=== PATIENT | female | born 1990 | race Caucasian/White ===

== ENCOUNTER 2018-01-22 02:02 | Inpatient (IN) | payer OTHER ==
[2018-01-22] MEDS: LACTATED RINGER'S 1000 ML IV (02:54)
[2018-01-22] MEDS: LR 1,000 ML IV ×2 (02:54→03:41)
[2018-01-22] MEDS: BUTORPHANOL 2 MG/ML INJ (J0595) IV (02:57)
[2018-01-22 03:03] LABS: HEMATOCRIT 38.3 % (36.0-47.0); HEMOGLOBIN 13.2 g/dl (12.0-15.5); MEAN CORPUSCULAR HEMOGLOBIN 29.9 pg (27.0-33.0); MEAN CORPUSCULAR HGB CONC 34.5 g/dl (32.0-36.5); MEAN CORPUSCULAR VOLUME 86.7 fl (80.0-96.0); PLATELET COUNT, AUTOMATED 173 10^3/uL (150-450); RED BLOOD COUNT 4.42 10^6/uL (4.00-5.40); RED CELL DISTRIBUTION WIDTH 13.2 % (11.5-14.5); WHITE BLOOD COUNT 18.8 10^3/uL (4.0-10.0)
[2018-01-22] MEDS ORDERED: fentaNYL 100 MCG/2 ML INJECTION (J3010) As Ordered (03:49)
[2018-01-22] MEDS ORDERED: FENTANYL 2MCG/ML ROPIVACAINE 0.2% IN 0.9% NACL 200ML IVBAG As Ordered (03:51)
[2018-01-22] MEDS ORDERED: NALOXONE INJ 0.4 MG/1 ML VIAL (J2310) IV (05:15)
[2018-01-22] MEDS ORDERED: ePHEDrine SULFATE 25 MG/5 ML(5MG/ML) SYRINGE IV (05:15)
[2018-01-22] MEDS ORDERED: FENTANYL/ROPIVACAINE/NACL BAG 200 ML EPIDURAL (05:15)
[2018-01-22] MEDS ORDERED: EPIDURAL COMMENT XX (05:15)
[2018-01-22] MEDS ORDERED: EPIDURAL/PCA KEYS XX (05:15)
[2018-01-22] MEDS ORDERED: diphenhydrAMINE INJ 50MG/ML VIAL (J1200) IV (05:15)
[2018-01-22] MEDS ORDERED: LACTATED RINGER'S 1000 ML IV (05:15)
[2018-01-22] MEDS ORDERED: ONDANSETRON 4MG/2ML VIAL (J2405) IV (05:15)
[2018-01-22] MEDS ORDERED: REFRIGERATOR IV KEYS XX (05:15)
[2018-01-22] MEDS ORDERED: OXYTOCIN 30 UNITS IN 0.9% NaCl 500ML IV BAG (J2590) As Ordered (06:11)
[2018-01-22] MEDS: OXYTOCIN DRIP 30 UNITS in APPROPRIATE DILUENT 1 EA IV (06:49)
[2018-01-22] MEDS ORDERED: DOCUSATE SODIUM 100 MG CAP PO (07:00)
[2018-01-22] MEDS ORDERED: MEASLES,MUMPS,RUBELLA VACCINE INJ (MMR-II) (90707) SC (07:00)
[2018-01-22] MEDS ORDERED: ACETAMINOPHEN 500 MG TAB PO (07:00)
[2018-01-22] MEDS ORDERED: DIBUCAINE 1% OINTMENT 30GM TOP (07:00)
[2018-01-22] MEDS: PRENATAL VITAMINS CHEWABLE TABLET PO (10:28)
[2018-01-22] MEDS: IBUPROFEN 800 MG TAB PO (20:34)
[2018-01-23 10:51] LABS: FETAL SCREEN PROF. 1 1
[2018-01-23] MEDS: PRENATAL VITAMINS CHEWABLE TABLET PO (10:55)
[2018-01-23] MEDS: RHOGAM 300 MCG (1500 IU) INJ (J2790) IM (11:03)
[2018-01-23] MEDS: INFLUENZA QUADRIVALENT PF VACCINE 0.5ML SYRINGE (90686) IM (12:30)
== END 2018-01-23 12:50 | disposition home or self-care (01) | DRG 775 ==
LOC: M LDO 02:02 → M LDI 02:27 → M OBS 09:22
PROVIDERS: Obstetrics & Gynecology; Pediatrics
PROC: 10E0XZZ Delivery of Products of Conception, External Approach (ICD-10-PCS; principal; 2018-01-22)
PROC: 0HQ9XZZ Repair Perineum Skin, External Approach (ICD-10-PCS; 2018-01-22)
DX: O48.0 Post-term pregnancy (principal); O69.81X0 Labor and delivery complicated by cord around neck, without compression, not applicable or unspecified; Z3A.40 40 weeks gestation of pregnancy; O70.0 First degree perineal laceration during delivery; Z37.0 Single live birth

== ENCOUNTER → 2021-01-19 | Outpatient (CLI) | payer OTHER ==
[~2021-01-19] MED LIST: IBUP-1114 PO; MAPA500T2 PO; NUPE1OIN2 TOP; PRENTAB9 PO
--- NOTE | 2021-01-19 13:46 | REP ---
INDICATION: PREG 33+ WKS GROWTH COMPARISON: None. TECHNIQUE: Transabdominal obstetrical ultrasound with color Doppler evaluation. FINDINGS: Examination demonstrates a single live intrauterine in cephalic presentation. motion is identified by technologist. Placenta is noted anterior and grade 2 without evidence for placenta previa or abruption. Amniotic fluid volume is normal. Evidence for nuchal cord noted. Selected gestational age: 34 weeks 1 day with RASHEL 03/01/2021. Gestational age by current measurements 35 weeks 5 days with RASHEL 02/18/2021. FHR equals 140 beats per minute. BPD: 9.0 cm at 36 weeks 6 days HC: 32.9 cm at 37 weeks 3 days AC: 32.8 cm at 36 weeks 5 days FL: 6.7 cm at 34 weeks 2 days HL: 5.9 cm at 34 weeks 1 day HC/AC: 1.00 Estimated weight 2860 grams (greater than 97thpercentile). GORDON: 9.3 cm IMPRESSION: Single live advanced gestation in cephalic presentation demonstrating greater than expected interval growth. Nuchal cord noted. <Electronically signed by Khai Mckenzie > 01/19/21 [id number]
== END ==
LOC: M RAD 12:27
PROVIDERS: ATTEND Registered Nurse Maternal Newborn
DX: Z36.89 Encounter for other specified antenatal screening (principal); Z3A.35 35 weeks gestation of pregnancy

== ENCOUNTER 2021-02-20 21:06 | Inpatient (IN) | payer OTHER ==
[~2021-02-20] VITALS: Ht 175.3 cm; Wt 88.0 kg
[2021-02-20] VITALS (19 sets, daily range): BP systolic 92–131; BP diastolic 53–79
--- OUTSIDE RECORDS SUMMARY | 2021-02-20 21:22 | CCD ---
Author Author [facility] Organization [facility] Address Unknown Phone Unavailable Support Name Relationship Address Phone DARLINE SCHAEFER Next Of Kin [address] [place] [address] UE Next Of Kin Unknown Unavailable ELLIOTT CAMACHO Next Of Kin [id number] [place], [place] [id number] Re-disclosure Warning The records that you are about to access may contain information from federally-assisted alcohol or drug abuse programs. If such information is present, then the following federally mandated warning applies: This information has been disclosed to you from records protected by federal confidentiality rules (42 CFR part 2). The federal rules prohibit you from making any further disclosure of this information unless further disclosure is expressly permitted by the written consent of the person to whom it pertains or as otherwise permitted by 42 CFR part 2. A general authorization for the release of medical or other information is NOT sufficient for this purpose. The Federal rules restrict any use of the information to criminally investigate or prosecute any alcohol or drug abuse patient.The records that you are about to access may contain highly sensitive health information, the redisclosure of which is protected by Article 27-F of the [facility] Public Health law. If you continue you may have access to information: Regarding HIV / AIDS; Provided by facilities licensed or operated by the [facility] Office of Mental Health; or Provided by the [facility] Office for People With Developmental Disabilities. If such information is present, then the following [facility] mandated warning applies: This information has been disclosed to you from confidential records which are protected by state law. State law prohibits you from making any further disclosure of this information without the specific written consent of the person to whom it pertains, or as otherwise permitted by law. Any unauthorized further disclosure in violation of state law may result in a fine or nursing home sentence or both. A general authorization for the release of medical or other information is NOT sufficient authorization for further disc losure. Immunizations Vaccine Date Status Description Data Source(s) COVID-19 VACCINE Voices 01/03/2021 12:00:00 AM EDT completed [email or web address] Vaccine Series Complete: YESThis Data wa s Submitted to [facility] Via [email or web address]. COVID-19 VACCINE Voices 12/13/2020 12:00:00 AM EDT completed [email or web address] Vaccine Series Complete: NOThis Data was Submitted to [facility] Via [email or web address]. Medications No Information Insurance Providers Payer name Policy type / Coverage type Policy ID Covered libertarian ID Covered libertarian's relationship to dyson Policy Dyson Plan Information U [id number] Spouse [id number] [facility] [id number] [facility] [id number] Problems, Conditions, and Diagnoses No Information Surgeries/Procedures No Information Results No Information Social History No Information
[2021-02-20] MEDS ORDERED: PENICILLIN G POTASSIUM IV 5 MU in D5W MINI-BAG PLUS 100 ML IV STA (21:24)
[2021-02-20] MEDS ORDERED: METHYLERGONOVINE MALEATE 0.2 MG/ML VIAL (J2210) IM PRN (21:25)
[2021-02-20] MEDS ORDERED: LACTATED RINGER'S 1000 ML IV ONE (21:25)
[2021-02-20] MEDS ORDERED: OXYTOCIN INJ 10 UNITS/ML VIAL (J2590) IV PRN (21:25)
[2021-02-20] MEDS ORDERED: OXYTOCIN DRIP 30 UNITS in IV 1 EA IV PRN (21:25)
[2021-02-20] MEDS ORDERED: LR 1,000 ML IV SCH (21:25)
[2021-02-20 21:53] LABS: HEMATOCRIT 35.5 % (36.0-47.0); HEMOGLOBIN 12.2 g/dl (12.0-15.5); MEAN CORPUSCULAR HEMOGLOBIN 29.8 pg (27.0-33.0); MEAN CORPUSCULAR HGB CONC 34.4 g/dl (32.0-36.5); MEAN CORPUSCULAR VOLUME 86.8 fl (80.0-96.0); PLATELET COUNT, AUTOMATED 182 10^3/uL (150-450); RED BLOOD COUNT 4.09 10^6/uL (4.00-5.40); WHITE BLOOD COUNT 12.2 10^3/uL (4.0-10.0)
--- NOTE | 2021-02-20 22:21 | HPEPDOC ---
Obstetrical History & Physical General Date of Admission Item Value Date Time White Blood Count 12.2 10^3/uL H 02/20/212119 Red Blood Count 4.09 10^6/uL 02/20/212119 Hemoglobin 12.2 g/dl 02/20/212119 Hematocrit 35.5 % L 02/20/212119 Mean Corpuscular Volume 86.8 fl 02/20/212119 Mean Corpuscular Hemoglobin 29.8 pg 02/20/212119 Mean Corpuscular Hemoglobin Concent 34.4 g/dl 02/20/212119 Red Cell Distribution Width 13.1 % 02/20/212119 Platelet Count 182 10^3/uL 02/20/212119 Vital Signs Label Value Date Time Patient Temperature 99.6 degrees F 02/20/212213 Temperature Source Temporal 02/20/212213 Pulse 73 02/20/212213 Blood Pressure Assessment 121/66 (84) 02/20/212213 Source Automatic Cuff (NIBP) Blood Pressure Assessment 127/72 (90) 02/20/212135 Source Automatic Cuff (NIBP) Pulse 79 02/20/212135 Patient Temperature 98.9 degrees F 02/20/212135 Temperature Source Temporal 02/20/212135Feb 20, 2021 at 21:19 Primary Care Physician: Russell Vergara MD History of Present Illness 02/20/21 30 Y.O AT 38.5 WEEKS IN ACTIVE LABOR WITH SHOW NO SROM GBS POSITIVE LMP 05/25/20 EDC 03/01 2021 BY EARLY US 14.5 WEEKS 10/24/2020. Chief Complaint: Contractions, term Information Provided By: Patient Age: 30 : 3 Term: 2 Pre-term: 0 Abortions: 0 Livin Care Care: Good Care Number of Visits: 7 Dating Final EDC: Mar 01, 2021 Final EDC for Daily Update: Mar 01, 2021 Final EDC by: LMP LMP: May 25, 2020 1st Trimester Date: Oct 24, 2020 Weeks + Days: 14.5 Estimated Date of Confinement: Mar 01, 2021 EGA at Admission: 38.5 Antepartum Course Diagnos(e)s ACTIVE LABOR AT TERM Height (inches): 5.10 Pre- weight (lbs.): 175 Admission Weight (lbs.): 194 Change in Weight (lbs.): 19 Past Medical History Past Obstetrical History #1: Past Obstetrical History: Multigravida Date of Delivery: Feb 25, 2013 Gestation: 39 Type of Delivery: Spontaneous Vaginal Del. Sex of Infant: Male Weight of Infant (grams): 3600.38 Complications: No Past Obstetrical History #2: Past Obstetrical History: Multigravida Date of Delivery: May 29, 2017 Gestation: 40 Type of Delivery: Spontaneous Vaginal Del. 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 Past Medical History Medical History NON CONTRIBUTORY Surgical History: Tonsilectomy Family History Significant Family History: No pertinent family hx Social History Social history NON SMOKER NO ETOH NO RECREATIONAL DRUGS NO VAPING TO AD NO VIOLENCE Marital Status: Family situation: Spouse/partner home Psychosocial History: No pertinent psych hx * Smoker: non-smoker Alcohol: Denies Drugs: denies Abuse Violence Screening Have you been hit/kicked/slapp: No Have you been sexually assault: No Imunizations Tdap status: current Influenza Status: current Allergies Coded Allergies: No Known Allergies (Unverified , 02/20/21) Medications Scheduled No.137/Iron/Folic Acd ( Vitamin Tablet) 1 Tab Tab, 1 TAB PO DAILY Scheduled PRN Acetaminophen (Mapap) 500 Mg Tab, 1,000 MG PO Q6HP PRN for PAIN Dibucaine (Nupercainal) 1 % Oin, 0 TOP Q4HP PRN for PAIN Ibuprofen (Ibuprofen) 400 Mg Tab, 800 MG PO Q8HP PRN for PAIN Physical Examination Physical Examination GENERAL: Alert and oriented times three. BREAST: . ABDOMEN: Gravid and non-tender to touch. FETUS: Is vertex (VTX) by sterile vaginal examination (SVE), fetus is vertex (VTX) by Demar. HEART RATE: Regular rate and rhythm. LUNGS: Clear to auscultation (CTA). EXTREMITIES: No edema. No clonus. Deep tendon reflexes (DTRs) + . Other physical findings NORMOCEPHALIC ATRAUMATIC NECK FULL RANGE MOTION PERRLA CHEST HHR DISTAL PULSES EQUAL SYMMETRIC LUNGS CTA NO WHEEZES NO RHONCHI BACK RCVA TENDERNESS ABDOMEN GRAVID NON TENDER APPROPRIATE SF HEIGHT 40 WEEKS VERTEX ROS SKIN NO RASH NO LESION NO PRURITUS RESPIRATORY NO COMPLAINTS OF COUGH OR WHEEZE NO SOB NO PYLE NO BRUISE NO BLEEDING NEURO NO DEFICIT URO NO INCONTINENCE NO URGENCY NO FREQUENCY DIGESTIVE NO N/V/C/D/F ENDO NO DIABETES CERVIX 5 STRETCHY POSTERIOR OT VERTEX 70% EFFACED CATEGORY 1 STRIP Pertinent Laboratoy Data Blood Type: A- RBC Antibody Screen: Negative HIV: Negative Hepatitis B: Negative Rapid Plasma Reagin: Nonreactive Rubella: Immune Varicella: Immune Chlamydia/Gonorrhea: Negative Group B Streptococcus: Positive Cystic Fibrosis: Negative Anatomy Ultrasound Ultrasound Date: Feb 08, 2021 Placenta Location: Anterior Normal Anatomy: Yes Placenta Previa: No Estimated Weight (grams): 3139.0 Steroid Therapy Steroid Therapy: No Vaginal Examination Dilation: 5 cm Effacement: 70% Station: -3 Cervical Consistency: Soft Cervical Position: Posterior Presentation: Cephalic presentation Assessment Variability: Moderate Accelerations: Positive Decelerations: None Tocometer Contractions: Yes Frequency: regular, every 1-5 min. Duration: less than 60 seconds Strength: palpated as moderate Assessment/Plan Assessment 30 -year-old 3 para (P2 at 38.5 weeks by 14.5 -week ultrasound. Presents to Labor and Delivery (L&D) .ACTIVE LABOR WITH SHOW Plan Admit and orient. Oncologist and consent. Diet: FLUIDS . Group B Streptococcus (GBS) POSITIVE Labs and intravenous (IV) per unit protocol. Counseled on Pitocin AUGMENTATION Lactated Ringers (LR): Bolus 1000 mL, then at 125 mL/hr. Anticipate [normal spontaneous delivery ()]. C-S as appropriate. Labor and Delivery Counseling REVIEWED VAGINAL DELIVERY WITH POSSIBLE ASSISTANCE FORCEPS OR VACUUM IF MEETS OR MATERNAL INDICATIONS ALSO MY REQUIRE EPISIOTOMY DUE TO LGA OR MATERNAL FATIGUE ALSO MAY SPONTANEOUSLY HAVE TEARS OR LACERATIONS OR DAMAGE TO BOWEL BLADDER URETHRA BLADDER RECTUM THAT MAY NEED REPAIR MAY REQUIRE EMERGENCY CS FOR DISTRESS OR MATERNAL INDICATIONS ALSO MAY HAVE ADMISSION TO NICU FOR BABY RISKS TO ALL ARE HEMORRHAGE INFECTION PERFORATION REOPERATION REMOTE BLOOD TRANSFUSION, REMOTE HYSTERECTOMY EXPRESSED UNDERSTANDING SAFE TO PROCEED EXPRESSED UNDERSTANDING 40 MINUTE DISCUSSION Russell Vergara MD Feb 20, 2021 22:17
[2021-02-20] MEDS ORDERED: FENTANYL 2MCG/ML ROPIVACAINE 0.2% IN 0.9% NACL 100ML IVBAG As Ordered ONE (22:24)
[2021-02-20] MEDS ORDERED: diphenhydrAMINE 50MG/ML VIAL (J1200) IV PRN (22:50)
[2021-02-20] MEDS ORDERED: EPIDURAL COMMENT XX SCH (22:50)
[2021-02-20] MEDS ORDERED: FENTANYL/ROPIVACAINE/NACL BAG 100 ML EPIDURAL SCH (22:50)
[2021-02-20] MEDS ORDERED: LACTATED RINGER'S 1000 ML IV PRN (22:50)
[2021-02-20] MEDS ORDERED: ONDANSETRON 4MG/2ML VIAL IV PRN (22:50)
[2021-02-20] MEDS ORDERED: NALOXONE INJ 0.4MG/1ML VIAL (J2310 PER 1MG) IV PRN (22:50)
[2021-02-20] MEDS ORDERED: REFRIGERATOR IV KEYS XX PRN (22:50)
[2021-02-20] MEDS ORDERED: EPIDURAL/PCA KEYS XX PRN (22:50)
[2021-02-20] MEDS ORDERED: ePHEDrine SULFATE 25 MG/5 ML(5MG/ML) SYRINGE IV PRN (22:50)
[2021-02-20] MEDS ORDERED: OXYTOCIN 30 UNITS IN 0.9% NaCl 500ML IV BAG (J2590) As Ordered ONE (23:52)
[2021-02-21 00:14] VITALS: BP 124/62
[2021-02-21 00:20] LABS: CORD GAS ABE V -1.4; CORD GAS HCO3 V 22.6 MEQ/L; CORD GAS PCO2 V 36.1 mmHg; CORD GAS PH V 7.414 UNITS; CORD GAS PO2 V 32.3 mmHg; CORD GAS SBC V 22.9 MEQ/L; CORD GAS TCO2 V 23.7 MEQ/L
[2021-02-21 00:22] LABS: CORD GAS ABE A -2.8; CORD GAS HCO3 A 26.1 MEQ/L; CORD GAS O2 SAT A 17.9 %; CORD GAS PH A 7.242 UNITS; CORD GAS PO2 A 12.4 mmHg; CORD GAS SBC A 20.1 MEQ/L
[2021-02-21 00:29] VITALS: BP 131/66
[2021-02-21] MEDS ORDERED: IBUPROFEN 800 MG TAB PO PRN (00:50)
[2021-02-21] MEDS ORDERED: ANUSOL HC CREAM 30GM TOP PRN (00:50)
[2021-02-21] MEDS ORDERED: DIBUCAINE 1% OINTMENT 30GM TOP PRN (00:50)
[2021-02-21] MEDS ORDERED: MOM 30ML SUSPENSION UDC PO PRN (00:50)
[2021-02-21] MEDS ORDERED: DOCUSATE SODIUM 100MG CAPSULE PO PRN (00:50)
[2021-02-21] MEDS ORDERED: RHOGAM 300 MCG (1500 IU) INJ (J2790) IM SCH (00:50)
[2021-02-21] MEDS ORDERED: ACETAMINOPHEN TAB 650MG DOSE (2X325MG) PO PRN (00:50)
[2021-02-21] MEDS ORDERED: IBUPROFEN 600MG TAB PO PRN (00:50)
[2021-02-21] MEDS ORDERED: METHYLERGONOVINE MALEATE 0.2 MG TAB PO PRN (00:50)
[2021-02-21] MEDS ORDERED: MEASLES,MUMPS,RUBELLA VACCINE INJ (MMR-II) (90707) SC SCH (00:50)
[2021-02-21] MEDS: OXYTOCIN DRIP 30 UNITS in IV 1 EA IV ONE (00:55)
[2021-02-21] MEDS ORDERED: PENICILLIN G POTASSIUM IV 2.5 MU in IV 1 EA IV SCH (03:45)
[2021-02-21 05:00] VITALS: BP 114/63
[2021-02-21] MEDS: PRENATAL VITAMINS CHEWABLE TABLET PO SCH (07:26)
[2021-02-21] MEDS: ACETAMINOPHEN 500 MG TAB PO PRN ×2 (07:27→20:27)
--- NOTE | 2021-02-21 11:52 | DN ---
DELIVERY NOTE DATE OF DELIVERY: 02/21/2021 TIME OF : GENDER: Male APGARS: 9 and 9. LACERATIONS: ANESTHESIA: ESTIMATED BLOOD LOSS: COUNTS: DESCRIPTION OF DELIVERY: This lady is a 30-year-old 3, para 2, admitted in active labor, GBS positive. Epidural in place. Delivered precipitously livebirth male , 8 pounds 4 ounces, 3740 gm, Apgars of 9 and 9 at one and five minutes respectively. Cord around the neck x1. Arterial pH 7.24, base excess -2.8; venous pH 7.41, base excess -1.4. Placenta delivered spontaneously thereafter, three vessels, membranes and tissues intact. Uterus contracted well down on Pitocin. Anterior, posterior and lateral moore were complete. Sphincter intact, no evidence of tears or lacerations or abrasions. Uterus remained well contracted under Pitocin. The patient and baby tolerated the procedure well. cc: [place] [facility]
[2021-02-21 18:18] VITALS: BP 112/63
--- NOTE | 2021-02-22 05:01 | IPNPDOC ---
Progress Note Date of Service: Feb 22, 2021 Day#: 1 Progress Note SUBJECT: Jacklyn Ag is a 30-year-old 3 now Para 3003 status post uncomplicated spontaneous vaginal delivery at 38+4 weeks' at approximately 2357 hours on 20FEB2021 of a male 8 pounds 4 ounces (3740 grams) doing well day # 1. She has been ambulating, voiding spontaneously without issue and tolerating regular diet. Breast feeding without issue. Reports lochia is like a normal period. GBS positive with inadequate treatment. OBJECTIVE: VITAL SIGNS: Within normal limits, afebrile. Alert and oriented times three. Nonlabored breathing Heart rate: Regular rate Abdomen: Fundus firm at U-2. Soft, NTTP. Negative calf tenderness bilaterally ASSESSMENT: as above doing well on day 1. Vitals within normal limits, afebrile, hemodynamically stable with no evidence of infection. PLAN: 1. Discharge to home likely today, may need to board due to baby 2. Tylenol and Motrin for pain. 3. Encourage breast feeding and ambulation. 4. Would like IUD at 6 weeks 5. Routine PP visit in 6 weeks in clinic. 6. Discussed return precautions at length. VS, I&O, 24H, Fishbone Vital Signs/I&O Vital Signs Date Time Temp Pulse Resp B/P (MAP) Pulse Ox O2 Delivery O2 Flow Rate FiO2 02/21/21 18:18 98.0 68 19 112/63 (79) 96 Room Air I&O- Last 24 Hours up to 6 AM 02/22/21 06:00 Intake Total 1000 ml Balance 1000 ml FLO VALLADARES DO Feb 22, 2021 03:12
[2021-02-22] MEDS ORDERED: ACET1TAB55 PO (05:04)
[2021-02-22] MEDS ORDERED: IBUP-1022 PO (05:04)
[2021-02-22] MEDS ORDERED: COLA100C5 PO (05:04)
--- NOTE | 2021-02-22 05:10 | OBDS ---
[facility] Obstetrical Discharge Sum. Obstetrical Discharge Summary Languages And Literature Instructor/Provider: FLO VALLADARES DO Date: Feb 22, 2021 Time: 05:08 : 3 Term: 3 Pre-term: 0 Abortions: 0 Livin VDRL: Non-Reactive Rh: Negative Rubella: Immune Labor uncomplicated Delivery vaginal spontaneous Infant Sex: Male Weight: pounds (8), ounces (4), grams (3740) A/P, Post Course List any complications Admission diagnosis: -active labor -term gestation. Discharge diagnosis: s/p spontaneous vaginal delivery Condition at Discharge: good Discharge Instructions: Home Activity: as tolerated Diet: pre-hospital Medications: at [place] Follow-up: 6 weeks [place] [facility] Other: FLO VALLADARES DO Feb 22, 2021 05:10
[2021-02-22 05:58] VITALS: BP 124/58
[2021-02-22 06:24] LABS: HEMATOCRIT 37.6 % (36.0-47.0); HEMOGLOBIN 12.6 g/dl (12.0-15.5); MEAN CORPUSCULAR HEMOGLOBIN 29.5 pg (27.0-33.0); MEAN CORPUSCULAR HGB CONC 33.5 g/dl (32.0-36.5); MEAN CORPUSCULAR VOLUME 88.1 fl (80.0-96.0); PLATELET COUNT, AUTOMATED 182 10^3/uL (150-450); RED BLOOD COUNT 4.27 10^6/uL (4.00-5.40); WHITE BLOOD COUNT 11.7 10^3/uL (4.0-10.0)
[2021-02-22] MEDS ORDERED: INFLUENZA QUADRIVALENT PF VACCINE 0.5ML SYRINGE IM ONE (07:10)
[2021-02-22] MEDS: PRENATAL VITAMINS CHEWABLE TABLET PO SCH (08:44)
--- NOTE | 2021-02-24 10:37 | IPN ---
PROGRESS NOTE DATE: 02/21/2021 This patient requested circumcision of her male . After discussing risks and benefits of circumcision, the medical and nonmedical indications, the penile block and aftercare, expressed understanding of penile block, aftercare and bleeding, signed the consent form. All questions were answered, 20 minute discussion. We await clearance by the [facility].
== END 2021-02-22 12:00 | disposition home or self-care (01) | DRG 807 ==
LOC: M LDO 21:06 → M LDI 21:19 → M OBS 02-21 02:24
PROVIDERS: ADMIT Obstetrics & Gynecology; ATTEND Obstetrics & Gynecology
PROC: 10E0XZZ Delivery of Products of Conception, External Approach (ICD-10-PCS; principal; 2021-02-21)
DX: O62.3 Precipitate labor (principal); Z37.0 Single live birth; Z3A.38 38 weeks gestation of pregnancy; O99.824 Streptococcus B carrier state complicating childbirth